=== PATIENT | male | born 1985 | race Caucasian/White ===

== ENCOUNTER 2019-11-23 15:45 | Emergency (ER) | payer SELFPAY ==
[2019-11-23 15:53] VITALS: BP 153/100
[2019-11-23] MEDS ORDERED: DEXAMETHASONE SOD PHOS INJ 10 MG/1 ML VIAL IM ONE (16:02)
[2019-11-23] MEDS ORDERED: METHYLPREDNISOLONE ACETATE INJ 40 MG/1 ML ML IM ONE (16:02)
--- NOTE | 2019-11-23 16:05 | ER Document Report ---
HPI - HPI Patient complains to provider of: Rash to face Time Seen by Provider: 11/23/19 15:59 Onset: Yesterday Onset/Duration: Sudden Quality of pain: No pain Pain Level: Denies Associated Symptoms: None Exacerbated by: Denies Relieved by: Denies Similar symptoms previously: No Notes: This 34-year-old male who was weed whacking in the yard when some brush struck him to the face he has had an itchy rash since that time. - REPRODUCTIVE Reproductive: DENIES: : Past Medical History - General Information source: Patient - Social History Smoking Status: Never Smoker Cigarette use (# per day): No Chew tobacco use (# tins/day): No Smoking Education Provided: No Frequency of alcohol use: None Drug Abuse: None Family History: None Vertical Provider Document - CONSTITUTIONAL Agree With Documented VS: Yes - HEENT HEENT: Atraumatic, Conjuctival Injection, Normocephalic, PERRLA - RESPIRATORY Respiratory: Breath Sounds Normal - CARDIOVASCULAR Cardiovascular: Regular Rate, Regular Rhythm - GI/ABDOMEN Gastrointestinal: Abdomen Soft, Abdomen Non-Tender, Abdominal Guarding - REPRODUCTIVE Male Genitalia: Normal Inspection - BACK Back: Normal Inspection - MUSCULOSKELETAL/EXTREMETIES Musculoskeletal/Extremeties: MAEW - NEURO Level of Consciousness: Awake, Alert Motor/Sensory: No Motor Deficit, No Sensory Deficit - DERM Integumentary: Rash Notes: Rash to forehead where some brush struck him while weed whacking 2 days ago red moist pruritic in nature. Course - Vital Signs Vital signs: Temp Pulse Resp BP Pulse Ox 98.5 F 72 18 153/100 H 99 11/23/19 15:52 11/23/19 15:52 11/23/19 15:52 11/23/19 15:52 11/23/19 15:52 Discharge - Discharge Clinical Impression: Contact dermatitis Qualifiers: Contact dermatitis type: allergic Contact dermatitis trigger: unspecified trigger Qualified Code(s): L23.9 - Allergic contact dermatitis, unspecified cause Disposition: HOME, SELF-CARE Instructions: Contact Dermatitis ([facility]) Prescriptions: Prednisone [Deltasone 20 mg Tablet] 3 tab PO DAILY 5 Days tablet
== END 2019-11-23 16:12 | disposition home or self-care (01) ==
LOC: ER 15:45
DX: L23.9 Allergic contact dermatitis, unspecified cause (principal)
CPT/HCPCS: 99282; 96372; J1030; J1100

== ENCOUNTER 2019-11-25 13:06 | Emergency (ER) | payer SELFPAY ==
[2019-11-25 13:12] VITALS: BP 159/94
--- NOTE | 2019-11-25 14:08 | RADIOLOGY REPORT (SQ) ---
EXAM DESCRIPTION: ANKLE LEFT COMPLETE IMAGES COMPLETED DATE/TIME: 11/25/2019 1:47 pm REASON FOR STUDY: pain COMPARISON: None. NUMBER OF VIEWS: Three views. TECHNIQUE: AP, lateral, and oblique radiographic images acquired of the left ankle. LIMITATIONS: None. FINDINGS: MINERALIZATION: Normal. BONES: No acute fracture or dislocation. No worrisome bone lesions. Incidental note is made of calc aneal enthesopathy. JOINTS: No effusions. SOFT TISSUES: No soft tissue swelling. No foreign body. OTHER: No other significant finding. IMPRESSION: No evidence of acute or subacute osseous injury. TECHNICAL DOCUMENTATION: JOB ID: [id number] 2010 [employer]- All Rights Reserved Reading location - IP/workstation name: [email or web address]
--- NOTE | 2019-11-25 15:01 | ER Document Report ---
HPI - HPI Patient complains to provider of: ankle pain Time Seen by Provider: 11/25/19 13:22 Pain Level: Denies Context: This a 34-year-old male presents to the emergency room today stating he has discomfort to his left ankle where he may have rolled it. Associated Symptoms: None Exacerbated by: Denies Relieved by: Denies - REPRODUCTIVE Reproductive: DENIES: : - DERM Skin Color: Normal, [place] Past Medical History - General Information source: Patient - Social History Smoking Status: Former Smoker Cigarette use (# per day): No Chew tobacco use (# tins/day): No Smoking Education Provided: No Frequency of alcohol use: None Drug Abuse: None Family History: None Patient has homicidal ideation: No Past Surgical History: Reports: Hx Orthopedic Surgery - right hand Vertical Provider Document - CONSTITUTIONAL Agree With Documented VS: Yes - HEENT HEENT: Atraumatic, Conjuctival Injection, Normocephalic, PERRLA - NECK Neck: Normal Inspection - RESPIRATORY Respiratory: Breath Sounds Normal, No Respiratory Distress - CARDIOVASCULAR Cardiovascular: Regular Rate, Regular Rhythm - GI/ABDOMEN Gastrointestinal: Abdomen Soft, Abdomen Non-Tender - REPRODUCTIVE Male Genitalia: Normal Inspection - BACK Back: Normal Inspection - MUSCULOSKELETAL/EXTREMETIES Musculoskeletal/Extremeties: MAEW Notes: Good distal pulses ambulatory with a rhythmic and steady gait. - NEURO Level of Consciousness: Awake Course - Vital Signs Vital signs: Temp Pulse Resp BP Pulse Ox 98.9 F 61 159/94 H 97 11/25/19 13:22 11/25/19 13:10 11/25/19 13:10 11/25/19 13:10 - Diagnostic Test Radiology results interpreted by me: 11/25/19 14:59 Ankle X-Ray 11/25/19 13:23 IMPRESSION: No evidence of acute or subacute osseous injury. Discharge - Discharge Clinical Impression: Left ankle strain Qualifiers: Encounter type: initial encounter Qualified Code(s): S96.912A - Strain of unspecified muscle and tendon at ankle and foot level, left foot, initial encounter Condition: Good Disposition: HOME, SELF-CARE Instructions: Ankle Stirrup Splint ([facility]), Sprained Ankle ([facility]) Prescriptions: Ibuprofen [Motrin 600 Mg Tablet] 600 mg PO TID #15 tablet
== END 2019-11-25 15:10 | disposition home or self-care (01) ==
LOC: ER 13:06
DX: S96.912A Strain of unspecified muscle and tendon at ankle and foot level, left foot, initial encounter (principal); M25.572 Pain in left ankle and joints of left foot; X50.1XXA Overexertion from prolonged static or awkward postures, initial encounter; Z87.891 Personal history of nicotine dependence
CPT/HCPCS: 99283

== ENCOUNTER 2019-11-29 12:26 | Emergency (ER) | payer SELFPAY ==
[2019-11-29 12:31] VITALS: BP 147/85
[2019-11-29] MEDS ORDERED: MUPIROCIN 2% OINTMENT 22 GM TP ONE (13:11)
[2019-11-29] MEDS ORDERED: PREDNISONE 20 MG TABLET PO ONE (13:11)
[2019-11-29] MEDS ORDERED: CEPHALEXIN 500 MG CAPSULE PO ONE (13:11)
--- NOTE | 2019-11-29 13:14 | ER Document Report ---
HPI - HPI Time Seen by Provider: 11/29/19 12:55 Context: Patient presents complaining of rash to the facial area for the past 4 days. Patient states that he was weed eating and a plant hit him in the face. Patient states he then developed a skin rash. Patient denies any fever. Patient states that area has become crusted and he is concerned about potential scarring to the face. Patient states he is primarily here to rack up medical debt that he needs $7000 in debt so that he can apply for Medicaid. Patient had previously had [id number] and canceled this in anticipation of getting established with Medicaid in [place]. Exacerbated by: Denies Relieved by: Denies Similar symptoms previously: No Recently seen / treated by doctor: Yes - ROS ROS below otherwise negative: Yes Systems Reviewed and Negative: Yes All other systems reviewed and negative - CONSTITUTIONAL Constitutional: DENIES: Fever - EENT EENT: DENIES: Eye problems - RESPIRATORY Respiratory: DENIES: Coughing - GASTROINTESTINAL Gastrointestinal: DENIES: Nausea - DERM Skin Color: Erythema Skin Problems: Rash Past Medical History - General Information source: Patient - Social History Smoking Status: Never Smoker Frequency of alcohol use: None Drug Abuse: None Occupation: none Lives with: Family Family History: None Endocrine Medical History: Reports: Hx Hypothyroidism GI Medical History: Reports: Hx Crohn's Disease Past Surgical History: Reports: Hx Orthopedic Surgery - right hand Vertical Provider Document - CONSTITUTIONAL Agree With Documented VS: Yes Exam Limitations: No Limitations General Appearance: WD/WN, No Apparent Distress - HEENT HEENT: Atraumatic, Normocephalic - NECK Neck: Normal Inspection, Supple. negative: Lymphadenopathy-Left, Lymphadenopathy-Right - RESPIRATORY Respiratory: Breath Sounds Normal, No Respiratory Distress - CARDIOVASCULAR Cardiovascular: Regular Rate, Regular Rhythm - BACK Back: Normal Inspection - MUSCULOSKELETAL/EXTREMETIES Musculoskeletal/Extremeties: MAEW - NEURO Level of Consciousness: Awake, Alert, Appropriate Motor/Sensory: No Motor Deficit - DERM Integumentary: Warm, Dry, Rash - Patient with erythematous crusting to the facial area and scattered to bilateral upper and lower extremities. Patient with erythematous macular papular lesion to the forehead area Course - Re-evaluation Re-evalutation: 11/29/19 13:13 Patient with skin rash to the face that does look suspicious for contact dermatitis that has secondarily become infected worrisome for impetigo. No concern for shingles at this time. Patient with numerous lesions to the extremities as well. Skin rash does not look fungal at this time. 11/29/19 13:13 Patient also states that he is almost out of his thyroid medication and would like a refill. 11/29/19 13:22 Patient states that if he takes steroids and antibiotics at the same time he causes him to have a yeast infection to his penis. Patient denies any yeast infection at this time although is requesting a prescription for cream in case he develops this. - Vital Signs Vital signs: Temp Pulse Resp BP Pulse Ox 98.5 F 71 16 147/85 H 97 11/29/19 12:29 11/29/19 12:29 11/29/19 12:29 11/29/19 12:29 11/29/19 12:29 Discharge - Discharge Clinical Impression: Impetigo, Medication refill Contact dermatitis Qualifiers: Contact dermatitis type: irritant Contact dermatitis trigger: non-food plants Qualified Code(s): L24.7 - Irritant contact dermatitis due to plants, except food Hypothyroidism Qualifiers: Hypothyroidism type: unspecified Qualified Code(s): E03.9 - Hypothyroidism, unspecified Condition: Stable Disposition: HOME, SELF-CARE Instructions: Contact Dermatitis ([facility]), Bactroban Ointment ([facility]), Cephalexin ([facility]), Impetigo ([facility]), Steroid Medication Additional Instructions: Return immediately for any new or worsening symptoms Followup with your primary care provider, call tomorrow to make a followup appointment Prescriptions: Mupirocin [Bactroban 2% Ointment 22 gm] 1 applic TP TID #22 gm Prednisone [Deltasone 10 mg Tablet] 10 mg PO ASDIR #21 tablet Cephalexin Monohydrate [Keflex 500 mg Capsule] 500 mg PO Q6H 7 Days #28 capsule Nystatin [Mycostatin Cream 15 gm] 1 applic TP BID #30 gm Levothyroxine Sodium [Synthroid] 175 mcg PO DAILY #30 tablet Referrals: [facility] [Provider Group] - Follow up as needed
== END 2019-11-29 13:25 | disposition home or self-care (01) ==
LOC: ER 12:26
DX: L01.00 Impetigo, unspecified (principal); L24.7 Irritant contact dermatitis due to plants, except food; E03.9 Hypothyroidism, unspecified
CPT/HCPCS: 99282; J7512; J3490